=== PATIENT | male | born 1955 | race Caucasian/White ===

== ENCOUNTER → 2022-06-04 | Outpatient (CLI) | payer BC ==
[2022-06-04 17:21] LABS: EOSINOPHILS % 5.5 % (0.0-5.0); LYMPHOCYTES % 25.2 % (20.0-50.0); MEAN CORPUSCULAR HEMOGLOBIN 31.5 pg (28.0-32.0); MEAN CORPUSCULAR VOLUME 90.2 fL (80.0-94.0); MEAN PLATELET VOLUME 7.1 fl (7.4-10.4); MONOCYTES % 8.6 % (2.0-8.0); NEUTROPHILS % 59.7 % (40.0-76.0); PLATELET 279 x1000/uL (130-400); RED BLOOD CELL COUNT 4.44 mill/uL (4.7-6.1); RED CELL DISTRIBUTION WIDTH 13.7 % (11.6-14.6)
[2022-06-04 17:29] LABS: CLARITY URINE CLEAR (CLEAR); COLOR URINE DARK YELLOW (YELLOW); KETONES URINE TRACE (NEGATIVE); LEUKOCYTE ESTERASE URINE NEGATIVE (NEGATIVE); NITRITE URINE NEGATIVE (NEGATIVE); OCCULT BLOOD URINE NEGATIVE (NEGATIVE); PH URINE 5.5 (4.5-8.0); PROTEIN URINE NEGATIVE (NEGATIVE); SPECIFIC GRAVITY URINE 1.024 (1.005-1.030); UROBILINOGEN URINE 0.2 E.U./dL (0.2-1.0)
[2022-06-04 18:31] LABS: CHLORIDE 106 mEq/L (98-107)
[2022-06-04 18:49] LABS: FERRITIN 73 ng/mL (22-322)
[2022-06-04 18:51] LABS: CARCINO EMBRYONIC ANTIGEN < 0.5 ng/ml
[2022-06-04 18:54] LABS: HDL CHOLESTEROL 50 mg/dL (40-59); LDL CHOLESTEROL 107 mg/dL (5-100); T4 FREE 0.92 ng/dL (0.76-1.46); TOTAL IRON BINDING CAPACITY 364 ug/dL (250-450)
[2022-06-04 19:02] LABS: FOLIC ACID (FOLATE) SERUM >20 ng/mL ng/mL (>5.38); VITAMIN B12 SERUM 525 pg/mL (211-911)
[2022-06-06 09:08] LABS: % FREE PSA 18.5 % (.); PROSTATE SPECIFIC AG TOTAL 3.3 ng/mL (0.0-4.0); PSA FREE 0.61 ng/mL
== END | disposition home or self-care (01) ==
LOC: LAB 16:24
PROVIDERS: ATTEND Specialist
DX: Z00.00 Encounter for general adult medical examination without abnormal findings (principal); R91.8 Other nonspecific abnormal finding of lung field; I10 Essential (primary) hypertension; M06.9 Rheumatoid arthritis, unspecified; E55.9 Vitamin D deficiency, unspecified
CPT/HCPCS: 36415; 71046; 80053; 80061; 81003; 82378; 82607; 82652; 82728; 82746; 83036; 83540; 83550; 84153; 84154; 84439; 84443; 84481; 85025; 85651

== ENCOUNTER 2022-06-26 08:32 | Emergency (ER) | payer BC, OTHER ==
[~2022-06-26] VITALS: Ht 172.7 cm; Wt 66.0 kg
[2022-06-26 09:54] LABS: CLARITY URINE CLEAR (CLEAR); COLOR URINE YELLOW (YELLOW); KETONES URINE TRACE (NEGATIVE); LEUKOCYTE ESTERASE URINE NEGATIVE (NEGATIVE); NITRITE URINE NEGATIVE (NEGATIVE); OCCULT BLOOD URINE NEGATIVE (NEGATIVE); PH URINE 5.5 (4.5-8.0); PROTEIN URINE NEGATIVE (NEGATIVE); SPECIFIC GRAVITY URINE 1.027 (1.005-1.030); UROBILINOGEN URINE 0.2 E.U./dL (0.2-1.0)
[2022-06-26 10:16] VITALS: BP 112/73
== END 2022-06-26 10:29 | disposition home or self-care (01) ==
LOC: ER 09:03
DX: M54.50 Low back pain, unspecified (principal); Z85.038 Personal history of other malignant neoplasm of large intestine
CPT/HCPCS: 72128; 72131; 81003; 99284

== ENCOUNTER → 2022-07-13 | Outpatient (CLI) | payer OTHER | END | disposition home or self-care (01) | LOC: MRI 07:46 | PROVIDERS: ATTEND Family Medicine Adult Medicine | DX: M47.27 Other spondylosis with radiculopathy, lumbosacral region (principal); M48.07 Spinal stenosis, lumbosacral region; M51.16 Intervertebral disc disorders with radiculopathy, lumbar region | CPT/HCPCS: 72148 ==

== ENCOUNTER → 2022-10-12 | Outpatient (CLI) | payer BC | END | disposition home or self-care (01) | LOC: RAD 13:06 | PROVIDERS: ATTEND Family Medicine Adult Medicine | DX: M16.11 Unilateral primary osteoarthritis, right hip (principal); G89.11 Acute pain due to trauma | CPT/HCPCS: 73502; 73552 ==

== ENCOUNTER → 2022-10-21 | Outpatient (CLI) | payer OTHER | END | disposition home or self-care (01) | LOC: MRI 09:05 | PROVIDERS: ATTEND Family Medicine Adult Medicine | DX: M18.9 Osteoarthritis of first carpometacarpal joint, unspecified (principal); M19.031 Primary osteoarthritis, right wrist; M19.041 Primary osteoarthritis, right hand; M25.731 Osteophyte, right wrist; M79.644 Pain in right finger(s) | CPT/HCPCS: 73221 ==